=== PATIENT | female | born 1990 ===

== ENCOUNTER 2017-07-09 09:11 | Emergency (ER) | payer OTHER ==
[2017-07-09 09:11] VITALS: BMI 25.4
[2017-07-09 09:52] LABS: HCG,QUALITATIVE URINE NEGATIVE (NEGATIVE)
[2017-07-09] MEDS ORDERED: Sodium Chloride 0.9% 1,000 ML IV ONE (09:53)
[2017-07-09 09:55] LABS: SQUAMOUS EPITHIAL 1 /hpf (0-5); URINE BACTERIA MOD (<OCC); URINE BILIRUBIN NEGATIVE (NEGATIVE); URINE BLOOD NEGATIVE (NEGATIVE); URINE CLARITY Clear (Clear); URINE COLOR Colorless (YELLOW); URINE GLUCOSE (UA) NORMAL (Normal); URINE LEUKOCYTE ESTERASE NEG Leu/uL (Negative); URINE NITRATE NEGATIVE (NEGATIVE); URINE PROTEIN NEGATIVE (NEGATIVE); URINE UROBILINOGEN NORMAL mg/dL (0.2-1.0)
[2017-07-09] MEDS ORDERED: Sodium Chloride 0.9% 1,000 ML ONE (09:59)
--- NOTE | 2017-07-09 10:00 | C.PDOC ---
History Of Present Illness 27 year old female presents to ED for evaluation of epigastric abdominal pain for the past 3 days. Pt reports having dark stool today. Pt states that she has been taking Naproxen for her knee pain. Denies nausea, vomiting, or any other complaints. Time Seen by Provider: 07/09/17 09:37 Chief Complaint (Nursing): Abdominal Pain History Per: Patient History/Exam Limitations: no limitations Onset/Duration Of Symptoms: Days (3) Current Symptoms Are (Timing): Still Present Location Of Pain/Discomfort: Epigastric Radiation Of Pain To:: None Quality Of Discomfort: "Pain" Associated Symptoms: denies: Nausea, Vomiting, Back Pain, Chest Pain, Urinary Symptoms Exacerbating Factors: None Alleviating Factors: None Recent travel outside of the [place]: No Additional History Per: Patient Abnormal Vaginal Bleeding: No Past Medical History Reviewed: Historical Data, Nursing Documentation, Vital Signs Vital Signs: Last Vital Signs Temp 97.9 F 07/09/17 11:07 Pulse 68 07/09/17 11:07 Resp 18 07/09/17 11:07 BP 97/65 L 07/09/17 11:07 Pulse Ox 96 07/09/17 11:07 - Medical History PMH: Denies: Chronic Kidney Disease Family History: States: Unknown Family Hx - Social History Hx Alcohol Use: No Hx Substance Use: No Review Of Systems Except As Marked, All Systems Reviewed And Found Negative. Constitutional: Negative for: Fever, Chills Gastrointestinal: Positive for: Abdominal Pain, Other (dark stool). Negative for: Nausea, Vomiting Genitourinary: Negative for: Dysuria, Frequency, Hematuria Musculoskeletal: Negative for: Back Pain Neurological: Negative for: Headache, Dizziness Physical Exam - Physical Exam Appears: Non-toxic, No Acute Distress Skin: Normal Color, Warm, Dry Head: Atraumatic, Normacephalic Eye(s): bilateral: Normal Inspection Oral Mucosa: Moist Neck: Supple Cardiovascular: Rhythm Regular, No Murmur Respiratory: Normal Breath Sounds, No Rales, No Rhonchi, No Wheezing Gastrointestinal/Abdominal: Soft, Tenderness (epigastric), No Guarding, No Rebound Rectal: Other (pt refused) Back: No CVA Tenderness Extremity: Normal ROM, No Pedal Edema, No Deformity Neurological/Psych: Oriented x3, Normal Speech ED Course And Treatment - Laboratory Results Result Diagrams: 07/09/17 10:15 07/09/17 10:15 O2 Sat by Pulse Oximetry: 100 Medical Decision Making Medical Decision Making: Plan: Blood work Urinalysis Protonix, IV fluids Reassess and dispo The patient declines admission, and wishes to leave the Emergency Department. This action is against my medical advice to the patient and the decision was made with informed refusal. The patient was told that admission is necessary and a full explanation of the rationale was given. The risks of leaving were explained to the patient and include, but are not limited to, worsening of known or currently unknown conditions, permanent disability and from undiagnosed or untreated conditions The patient has the capacity to make this informed decision and understands the clinical situation and my explanation of the risks of leaving. The patient voluntarily accepts these risks, and a signed AMA form documenting our conversation was obtained. The patient was given the opportunity to ask questions and reconsider. The patient was encouraged to return to the Emergency Department at any time for further care. Pt at bedside has picture of stool, which appears as melena Pt was advised to stop taking Naproxen. h/o of pud. refuses admission. Disposition - Disposition Referrals: [facility] [Outside] [facility] [Outside] Gerber Fish [Staff Provider] - Raj CABRAL,MD Yudi [Medical Doctor] - Disposition: AGAINST MEDICAL ADVICE Disposition Time: 10:38 Condition: UNKNOWN Additional Instructions: please follow up with your gi doctor. return to er with worsening symptoms or concerns. you are declining admission to hospital. please stop taking naproxen. Prescriptions: Pantoprazole Sodium [Protonix] 40 mg PO DAILY #20 ect Instructions: Gastrointestinal Bleeding (GEN), Acute Abdominal Pain (ED), Against Medical Advice (ED) Forms: [employer] ([place]) Print Language: SAMMARINESE - Clinical Impression Clinical Impression: GI bleed, Abdominal pain, Left against medical advice - Scribe Statement The provider has reviewed the documentation as recorded by the Ashleyibchong Grimes All medical record entries made by the Scribe were at my direction and personally dictated by me. I have reviewed the chart and agree that the record accurately reflects my personal performance of the history, physical exam, medical decision making, and the department course for this patient. I have also personally directed, reviewed, and agree with the discharge instructions and disposition.
[2017-07-09 10:22] LABS: BASO % 0.2 % (0.0-2.0); EOS % 0.1 % (0.0-4.0); HEMOGLOBIN 13.6 g/dL (11.0-16.0); LYMPH # 1.2 K/uL (1.0-4.3); LYMPH % 22.6 % (20.0-40.0); MEAN CELL VOLUME 89.9 fL (81.0-99.0); MEAN CORPUSCULAR HEMOGLOBIN 31.5 pg (27.0-31.0); MEAN PLATELET VOLUME 10.8 fL (7.2-11.7); MONO # 0.3 K/uL (0.0-0.8); MONO % 5.3 % (0.0-10.0); NEUT # 3.9 K/uL (1.8-7.0); NEUT % 71.8 % (50.0-75.0); RBC 4.33 Mil/uL (3.80-5.20); RED CELL DISTRIBUTION WIDTH 13.1 % (11.5-14.5); WHITE BLOOD COUNT 5.4 K/uL (4.8-10.8)
[2017-07-09 10:28] LABS: INR 1.1
[2017-07-09 10:32] LABS: ALB/GLOB RATIO 1.2 (1.0-2.1); ALBUMIN 4.3 g/dL (3.5-5.0); ALT/SGPT 18 U/L (9-52); AST/SGOT 25 U/L (14-36); BLOOD UREA NITROGEN 15 mg/dL (7-17); CALCIUM 9.1 mg/dl (8.6-10.4); GFR AFRICAN-AMERICAN > 60; GFR NON-AFRICAN AMERICAN > 60; LIPASE 92 U/L (23-300)
[2017-07-09 11:08] VITALS: BP 97/65; PULSE 68; RESP 18; TEMP 97.9
[2017-07-09 13:01] VITALS: O2SAT 100
== END 2017-07-09 11:18 | disposition left against medical advice (07) ==
LOC: C.ER 09:11
DX: K92.2 Gastrointestinal hemorrhage, unspecified (principal); R10.13 Epigastric pain
CPT/HCPCS: 80053; 81001; 83690; 84703; 85025; 85610; 85730; 86850; 86900; 96361; 96374; 99285; C9113; J7040